=== PATIENT | male | born 1960 | race Caucasian/White ===

== ENCOUNTER → 2020-04-29 10:21 | Outpatient (CLI) | payer BC, SELFPAY ==
--- NOTE | ~2020-04-29 | XR_ITS ---
XR lumbar spine 2-3V 04/29/2020 11:01 Indication: Low back pain Procedure: 3 views lumbar spine Comparison: No prior studies for comparison. Findings: Vertebral body heights are maintained. There is disc narrowing at L3-4. There is moderate m ultilevel facet hypertrophy. Pedicles intact. There are cholecystectomy clips. No acute fracture or t raumatic malalignment. Impression: 1: Moderate lumbar spondylosis. Reviewed, dictated and finalized at location B. PING MACHINE OPERATOR Impression: 1: Moderate lumbar spondylosis.
--- NOTE | ~2020-04-29 | XR_ITS ---
XR hip BI 2V w AP pelvis 04/29/2020 11:01 Indication: Low back pain Procedure: AP view of the pelvis and 2 views each hip Comparison: No prior studies for comparison. 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 Pelvic rings are intact. No a cute fracture or traumatic malalignment. No significant soft tissue abnormality. No foreign bodies. 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 Reviewed, dictated and finalized at location B. 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
== END ==
PROVIDERS: PCP Family Medicine; Visit Provider Family Medicine
DX: M16.0 Bilateral primary osteoarthritis of hip (principal); M47.896 Other spondylosis, lumbar region
CPT/HCPCS: 72100; 73521